=== PATIENT | female | born 2000 | race Caucasian/White ===

== ENCOUNTER 2020-04-18 14:41 | Emergency (ER) | payer MEDICAID ==
[~2020-04-18] VITALS: Ht 162.6 cm; Wt 57.3 kg
[2020-04-18 14:46] VITALS: Ht 162.6 cm; Wt 57.3 kg
[2020-04-18 15:26] LABS: BASOPHILS 0.3 % (0-2); EOSINOPHILS 1.5 % (0-7); HEMATOCRIT 44.6 % (36.0-48.0); HEMOGLOBIN 15.1 g/dL (12-16); IMMATURE GRANULOCYTES 0.2 % (0-5); LYMPHOCYTES 27.3 % (15-50); MCH 29.7 pg (26.0-34.0); MCHC 33.9 g/dL (31.0-37.0); MCV 87.6 fL (80.0-100.0); MEAN PLATELET VOLUME 10.6 fL (7.4-10.4); MONOCYTES 6.8 % (2-11); NEUTROPHILS 63.9 % (40-80); PLATELET COUNT 234 10x3/uL (130-400); RBC 5.09 10x6/uL (4.00-5.40); RDW 12.2 % (11.5-14.5); WBC 8.7 10x3/uL (4.8-10.8)
[2020-04-18 15:33] LABS: AMORPHOUS SEDIMENT >1+ /lpf (NONE SEEN); RED CELLS - URINE >50 /hpf (0-5)
[2020-04-18 15:35] LABS: HCG URINE NEGATIVE (NEGATIVE)
[2020-04-18 15:37] LABS: CALC OSMOLALITY 277 mosm/kg (275-300); CALCIUM 9.4 mg/dL (8.5-10.1); CARBON DIOXIDE 28.7 mmol/L (21.0-32.0); CHLORIDE - SERUM 104 mmol/L (98-107); GLUCOSE 103 mg/dL (74-106); POTASSIUM - SERUM 3.3 mmol/L (3.5-5.1); SODIUM 140 mmol/L (136-145); UREA NITROGEN 9 mg/dL (7-18); eGFR NON AFRICAN AMERICAN 76 mL/min (90-120)
[2020-04-18 15:53] LABS: ALBUMIN 4.4 g/dL (3.4-5.0); ALKALINE PHOSPHATASE 57 U/L (30-120); ALT (SGPT) 11 U/L (10-68); AMYLASE - SERUM 77 U/L (25-115); BILIRUBIN - TOTAL 0.52 mg/dL (0.2-1.3); LIPASE 193 U/L (73-393); PROTEIN - SERUM 8.1 g/dL (6.4-8.2)
[2020-04-18 16:00] LABS: TROPONIN-I < 0.017 ng/mL (0.000-0.060)
[2020-04-18] MEDS ORDERED: ZOFRAN ODT4 MG/UDTAB PO (17:10)
[2020-04-18] MEDS ORDERED: BENTYL 20 MG TA20 MG PO (17:10)
[2020-04-18 17:20] VITALS: BP 104/66
== END 2020-04-18 17:20 | disposition home or self-care (01) ==
LOC: D.ER 14:41
PROVIDERS: Family Medicine
DX: R10.32 Left lower quadrant pain (principal); R11.0 Nausea; N39.0 Urinary tract infection, site not specified